=== PATIENT | female | born 1960 | race Two or more races ===

== ENCOUNTER 2024-07-27 01:04 | Emergency (ER) | payer OTHER ==
[~2024-07-27] VITALS: Ht 154.9 cm; Wt 72.6 kg
[~2024-07-27 01:04] MED LIST: CLIMARA1 PATCH.W1; FOLIC ACID1 MG; PAIN RELIEF EX500 MG PO; PROVENTIL3 ML/2.5 M IH
[2024-07-27] MEDS ORDERED: GLUMETZA500 MG (01:28)
[2024-07-27] MEDS ORDERED: AVAPRO150 MG (01:28)
[2024-07-27] MEDS ORDERED: ZETIA10 MG (01:29)
[2024-07-27] MEDS ORDERED: METOCLOPRAMIDE HCL 5 MG/ML VIAL IM STA (02:53)
[2024-07-27] MEDS ORDERED: MECLIZINE HCL 25 MG TABLET PO STA (02:54)
[2024-07-27] MEDS ORDERED: hydrOXYzine PAMOATE 50 MG CAPSULE PO STA (02:54)
[2024-07-27] MEDS ORDERED: MECLIZINE HCL 25 MG TABLET PO ONE (03:18)
[2024-07-27] MEDS ORDERED: METOCLOPRAMIDE HCL 5 MG/ML VIAL ONE (03:18)
[2024-07-27] MEDS ORDERED: hydrOXYzine PAMOATE 50 MG CAPSULE PO ONE (03:18)
== END 2024-07-27 05:31 | disposition home or self-care (01) ==
LOC: ER 01:07
DX: H81.10 Benign paroxysmal vertigo, unspecified ear (principal)